=== PATIENT | female | born 1970 | race Caucasian/White ===

== ENCOUNTER → 2021-11-08 | Day surgery (SDC) | payer OTHER ==
[~2021-11-08] VITALS: Ht 177.8 cm; Wt 99.8 kg
[~2021-11-08] MED LIST: BETAMETHASONE TOP; HCTZ25 MG PO; LOSARTAN POTASS50 MG PO; METFORMIN HCL750 MG PO; METOPROLOL SUCC25 MG PO; [UNRECOGNIZED DRUG - OTHER] TOP
[2021-11-08 06:57] LABS: HCG (URINE) SCREEN NEGATIVE (NEGATIVE)
[2021-11-08 07:25] LABS: HCT 43.8 % (37.0-47.0); MCH 29.4 pg (25.0-31.0); MCHC 34.2 g/dL (32.0-36.0); MCV 85.9 fL (78.0-100.0); MPV 9.7 fL (6.0-9.5); RBC 5.1 M/uL (4.20-5.40); RDW 12.6 % (11.5-14.0); WBC 8.1 K/uL (4.0-10.5)
[2021-11-08 07:47] LABS: BUN/CREAT RATIO (CALC) 23.4 RATIO; CREATININE 0.64 mg/dL (0.51-0.95)
== END | disposition home or self-care (01) ==
LOC: FAS 06:33
PROVIDERS: Anesthesiology
DX: D25.1 Intramural leiomyoma of uterus (principal); D25.0 Submucous leiomyoma of uterus; D25.2 Subserosal leiomyoma of uterus; N83.201 Unspecified ovarian cyst, right side; N94.6 Dysmenorrhea, unspecified; D64.9 Anemia, unspecified; N30.90 Cystitis, unspecified without hematuria; I10 Essential (primary) hypertension; R73.03 Prediabetes; Z87.891 Personal history of nicotine dependence; Z98.51 Tubal ligation status; Z79.82 Long term (current) use of aspirin; Z79.84 Long term (current) use of oral hypoglycemic drugs; Z79.899 Other long term (current) drug therapy; Z88.0 Allergy status to penicillin
CPT/HCPCS: 36415; 80048; 84703; 86850; 86900; 86901; 93005; J0690; J1100; J1170; J1200; J1885; J2250; J2405; J2704; J3010; J3480; J7120